=== PATIENT | female | born 1990 | race Caucasian/White ===

== ENCOUNTER 2020-03-17 07:55 | Outpatient (REF) | payer OTHER, SELFPAY ==
--- NOTE | 2020-03-17 08:53 | P.BOP_ITS ---
Brief Operative Note Date of procedure: 03/17/20 Pre-op diagnosis: nontoxic multinodular goiter Post-op diagnosis: same Procedure: Fine-needle aspiration biopsy of right mid pole thyroid nodule under ultrasound guidance. This procedure was explained to the patient. Alternatives, risks and benefits were discussed. Written consent was obtained. After sterile preparation of the skin, fine-needle aspiration biopsy of right mid polethyroid nodule size 1.8 x 0.9 x 1.3 cm, was performed under direct ultrasound guidance to confirm accurate needle placement. Three passes were performed with 27 gauge needles. Sample was submitted to cytology, initial cytology reading was borderline. 2 extra passes were performed with 25 gauge needles, under thyroid ultrasound guidance to confirm accurate needle placement. 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 Patient tolerated procedure well. Aftercare instructions were provided. Impression: uncomplicated fine-needle aspiration biopsy of Right mid pole thyroid nodule under direct ultrasound guidance. Surgeon: Sharlene Dickson MD Anesthesia: local and other ( Ethyl chloride [place]) Estimated blood loss (mL): 0 Pathology: other (cytology) Condition: stable Disposition: same day
== END 2020-03-17 07:56 | disposition home or self-care (01) ==
LOC: HO.US 07:55
PROVIDERS: Visit Provider Internal Medicine Endocrinology, Diabetes & Metabolism
DX: E04.2 Nontoxic multinodular goiter (principal)
CPT/HCPCS: 10005; 88172; 88173; 88177

== ENCOUNTER → 2020-04-01 14:10 | Outpatient (BNVA) | payer OTHER, SELFPAY | PROVIDERS: PCP Internal Medicine; Visit Provider Internal Medicine Endocrinology, Diabetes & Metabolism | DX: Z76.89 Persons encountering health services in other specified circumstances (principal) ==

== ENCOUNTER 2021-02-14 14:12 | Outpatient (REF) | payer OTHER, SELFPAY ==
--- NOTE | ~2021-02-14 | US_ITS ---
EXAMINATION: US THYROID CLINICAL INFORMATION: Nontoxic multinodular goiter. COMPARISON: Ultrasound soft tissue head/neck thyroid dated 01/11/2020 and 01/13/2019. TECHNIQUE: Linear transducer wood-scale and color Doppler examination with attention to the region of the thyroid. FINDINGS: SIZE: Measurements of the thyroid lobes and nodules are given in sagittal, anteroposterior and transverse dimensions respectively. Right Thyroid Lobe: 6.0 x 2.1 x 1.7 cm, volume 11.2 mL. Previously 6.4 x 1.8 x 1.9 cm, volume 11.4 mL. Parenchyma: The gland echotexture is heterogeneous. Thyroid vascularity is increased. Left Thyroid Lobe: 5.4 x 1.7 x 1.5 cm, volume 7.2 mL. Previously 5.4 x 1.8 x 1.6 cm, volume 7.9 mL. Parenchyma: The gland echotexture is heterogeneous. Thyroid vascularity is increased. Isthmus: 0.5 cm in maximum AP dimension. Previously 0.4 cm. Estimated total number of nodules greater than or equal to 1 cm: 1. Equal Opportunity Officer nodules are described as follows: 1. Location: Right mid. Size: 1.8 x 0.8 x 1.2 cm, volume 0.9 mL. Previously: 1.8 x 0.9 x 1.3 cm, volume 1.1 mL. Nodule characteristics: Composition: Solid (2). Echogenicity: Very hypoechoic (3). Shape: Not taller than wide (0). Margins: Irregular (2). Echogenic Foci: None (0). ACR TI-RADS total points: 7 ACR TI-RADS category: 5 Significant change in size (>/= 20% in 2 dimensions and minimal increase of 2 mm or 50% or greater increase in volume): None. Change in features: None. Change in ACR TI-RADS risk category: Not applicable. NODES: There are small lymph nodes seen in the right level 2 neck measuring 2.6 x 1.0 x 2.3 cm and left level 2 lymph node measuring 2.6 x 0.7 x 2.4 cm. US/US thyroid IMPRESSION: Solitary right thyroid nodule midpole. If already biopsied, recommend followup. Diffusely heterogeneous and enlarged thyroid gland, likely goiter. Borderline level 2 lymph nodes in right and left neck. ACR TI-RADS RECOMMENDATION REFERENCE: Ultrasound-guided fine-needle aspiration, followup ultrasound, no further followup. * TR1 (0 point) and TR 2 (2 points): No FNA or followup. * TR3 (3 points): FNA if more than or equal to 2.5 cm in maximum dimension, followup ultrasound in 1, 3 and 5 years if 1.5 to 2.4 cm in maximum dimension. * TR4 (4-6 points): FNA if more than or equal to 1.5 cm in maximum dimension, followup ultrasound in 1, 2, 3 and 5 years if 1 to 1.4 cm in maximum dimension. * TR5 (more than or equal to 7 points): FNA if more than or equal to 1 cm in maximum dimension, followup ultrasound every year for 5 years if 0.5 to 0.9 cm in maximum dimension. * TR3, TR4 or TR5 nodules that are below the size threshold for followup receive no followup.
== END 2021-02-14 14:13 | disposition home or self-care (01) ==
LOC: HO.HMGCX 14:12
PROVIDERS: Visit Provider Internal Medicine
DX: E04.2 Nontoxic multinodular goiter (principal)
CPT/HCPCS: 76536

== ENCOUNTER 2021-06-14 09:27 | Outpatient (REF) | payer OTHER, SELFPAY ==
[2021-06-14 11:02] LABS: Thyroid Stimulating Hormone 4.85 uIU/mL (0.32-4.0)
== END 2021-06-14 09:28 | disposition home or self-care (01) ==
LOC: HO.LAB 09:27
PROVIDERS: Visit Provider Nurse Practitioner Gerontology
DX: E03.9 Hypothyroidism, unspecified (principal)
CPT/HCPCS: 36415; 84439; 84443